=== PATIENT | female | born 1975 | race Caucasian/White ===

== ENCOUNTER 2018-03-26 13:02 | Outpatient (CLI) | payer MEDICAID ==
[~2018-03-26] VITALS: Ht 154.9 cm; Wt 108.5 kg
[2018-03-26 13:22] VITALS: BP 137/75
--- NOTE | 2018-03-26 13:46 | Diagnostic Imaging Report ---
INDICATION: Preoperative evaluation prior to septoplasty. TECHNIQUE: PA and lateral views of the chest are obtained. COMPARISON: No previous study is available for comparison at this time. FINDINGS: Heart size and pulmonary vasculature are within normal limits, and the lungs are clear, bilaterally. IMPRESSION: Unremarkable chest. Dictated by: Dictated on workstation # [id number]
[2018-03-26 14:12] LABS: BASOPHILS % (AUTO) 1 % (0-10); EOSINOPHILS # (AUTO) 0.1 10^3/uL (0.0-0.3); EOSINOPHILS % (AUTO) 2 % (0-10); HEMATOCRIT 42 % (35-52); LYMPHOCYTES # (AUTO) 2.8 X 10^3 (1.0-4.0); LYMPHOCYTES % (AUTO) 42 % (12-44); MEAN CORPUSCULAR HEMOGLOBIN 29 PG (25-34); MEAN CORPUSCULAR HGB CONC 34 G/DL (32-36); MEAN CORPUSCULAR VOLUME 86 FL (80-99); MEAN PLATELET VOLUME 9.8 FL (7.4-10.4); MONOCYTES # (AUTO) 0.4 X 10^3 (0.0-1.0); MONOCYTES % (AUTO) 5 % (0-12); NEUTROPHILS # (AUTO) 3.3 X 10^3 (1.8-7.8); NEUTROPHILS % (AUTO) 50 % (42-75); PLATELET COUNT 235 10^3/uL (130-400); RED BLOOD COUNT 4.84 10^6/uL (4.35-5.85); WHITE BLOOD COUNT 6.6 10^3/uL (4.3-11.0)
[2018-03-26 14:37] LABS: ALANINE AMINOTRANSFERASE 32 U/L (0-55); ALBUMIN 3.9 GM/DL (3.2-4.5); ALKALINE PHOSPHATASE 121 U/L (40-136); BILIRUBIN,TOTAL 0.3 MG/DL (0.1-1.0); BUN/CREATININE RATIO 14; CALCIUM 9.8 MG/DL (8.5-10.1); CARBON DIOXIDE 15 MMOL/L (21-32); CHLORIDE 99 MMOL/L (98-107); CREATININE SERUM 0.69 MG/DL (0.60-1.30); GFR ESTIMATED > 60; GLUCOSE 319 MG/DL (70-105); POTASSIUM 4.3 MMOL/L (3.6-5.0); SODIUM 135 MMOL/L (135-145); TOTAL PROTEIN 7.9 GM/DL (6.4-8.2)
[2018-03-28] MEDS ORDERED: NIAC500T24 PO (10:39)
[2018-03-28] MEDS ORDERED: FLUT9.9S NS (10:39)
[2018-03-28] MEDS ORDERED: TRAM50TA2 PO (10:39)
[2018-03-28] MEDS ORDERED: EZET1TAB29 PO (10:39)
[2018-03-28] MEDS ORDERED: AMIT50TA3 PO (10:39)
[2018-03-28] MEDS ORDERED: ESTR2TAB PO (10:39)
[2018-03-28] MEDS ORDERED: ACYC400T PO (10:39)
[2018-03-28] MEDS ORDERED: MILN50TA PO (10:39)
[2018-03-28] MEDS ORDERED: CELE-63 PO (10:39)
[2018-03-28] MEDS ORDERED: ACET-2650 PO (10:39)
[2018-03-28] MEDS ORDERED: EMPA25TA PO (10:39)
[2018-03-28] MEDS ORDERED: LEVO25TA5 PO (10:39)
[2018-03-28] MEDS ORDERED: PANT20TA3 PO (10:39)
[2018-03-28] MEDS ORDERED: INSU100V31 IJ ×2 (10:41)
[2018-03-28] MEDS ORDERED: INSU100V6 SQ (10:41)
== END 2018-03-26 15:30 | disposition home or self-care (01) ==
LOC: PREOP 13:02
PROVIDERS: ATTEND Otolaryngology Otolaryngology/Facial Plastic Surgery
DX: Z01.810 Encounter for preprocedural cardiovascular examination (principal); Z01.811 Encounter for preprocedural respiratory examination; Z01.812 Encounter for preprocedural laboratory examination; Z11.2 Encounter for screening for other bacterial diseases; J32.4 Chronic pansinusitis; J33.9 Nasal polyp, unspecified; J34.2 Deviated nasal septum; J34.3 Hypertrophy of nasal turbinates
CPT/HCPCS: 36415; 71046; 80053; 85025; 87081; 93005

== ENCOUNTER 2018-03-29 06:55 | Day surgery (SDC) | payer MEDICAID ==
[~2018-03-29] VITALS: Ht 154.9 cm; Wt 108.5 kg
[~2018-03-29 06:55] MED LIST: ACET-2650 PO; ACYC400T PO; AMIT50TA3 PO; CELE-63 PO; EMPA25TA PO; ESTR2TAB PO; EZET1TAB29 PO; FLUT9.9S NS; INSU100V31 IJ; INSU100V6 SQ; LEVO25TA5 PO; MILN50TA PO; NIAC500T24 PO; PANT20TA3 PO; TRAM50TA2 PO
[2018-03-29] MEDS ORDERED: AMPICILLIN/SULBACTAM INJECTION 1.5 GM in NS (IVPB) 100 ML IV ONE (07:15)
[2018-03-29] MEDS ORDERED: LACTATED RINGERS 1,000 ML IV PRN (07:15)
[2018-03-29 07:21] VITALS: BP 106/54
[2018-03-29] MEDS ORDERED: LIDOCAINE PF 1% 5 ML (XYLOCAINE) AMP ONE (08:00)
[2018-03-29] MEDS ORDERED: FAMOTIDINE 20MG/2ML IV (PEPCID) IV ONE (08:00)
[2018-03-29] MEDS ORDERED: ONDANSETRON 4 MG/2 ML (SDV) Z0FRAN IV ONE (08:00)
[2018-03-29] MEDS ORDERED: SCOPOLAMINE 1.5 MG (TRANSDERM-SCOP) PATCH TOP ONE (08:00)
[2018-03-29] MEDS ORDERED: COCAINE HCL 4% 2 ML SYR ONE (08:02)
[2018-03-29] MEDS ORDERED: PHENYLEPHRINE 0.5% NASAL SPR (NEO-SYNEPHRINE) REG ONE (08:02)
[2018-03-29] MEDS ORDERED: LIDOCAINE/EPI 1%-1:200,000 (XYLOCAINE) 10 ML VIAL ONE (08:02)
[2018-03-29] MEDS ORDERED: BSS 15 ML ONE (08:02)
[2018-03-29] MEDS: LACTATED RINGERS 1,000 ML IV PRN ×2 (08:14→10:30)
[2018-03-29] MEDS ORDERED: NS IV 500 ML 500 ML ONE (08:15)
[2018-03-29] MEDS ORDERED: MIDAZOLAM 2 MG/2 ML (VERSED) VIAL IV ONE (08:15)
[2018-03-29] MEDS ORDERED: LIDOCAINE PF 2% 5 ML (XYLOCAINE) VIAL ONE ×2 (08:15→08:35)
[2018-03-29] MEDS ORDERED: proPOfol 200 MG/20 ML (DIPRIVAN) VIAL IV ONE ×2 (08:15→08:35)
[2018-03-29] MEDS ORDERED: ONDANSETRON 4 MG/2 ML (SDV) Z0FRAN ONE ×2 (08:15→08:35)
[2018-03-29] MEDS ORDERED: ROCURONIUM 10 MG/ML 5 ML SYRINGE IV ONE ×3 (08:15→09:16)
[2018-03-29] MEDS ORDERED: fentaNYL INJECTION 100 MCG/2 ML AMP ONE ×2 (08:15→08:34)
[2018-03-29] MEDS ORDERED: MIDAZOLAM 2 MG/2 ML (VERSED) VIAL ONE ×2 (08:17→08:34)
--- NOTE | 2018-03-29 08:21 | Progress Note-Pre Operative ---
Pre-Operative Progress Note H&P Reviewed The H&P was reviewed, patient examined and no changes noted. Date Seen by Provider: Mar 29, 2018 Time Seen by Provider: 08:00 Date H&P Reviewed: Mar 29, 2018 Time H&P Reviewed: 08:00 Pre-Operative Diagnosis: Bilat Chronic Sinusitis, Deviated nasal septum, Bilat Hyepr of Inf Turbs ANDRÉS FRITZ MD Mar 29, 2018 8:21 am
[2018-03-29] MEDS ORDERED: SEVOFLURANE (ULTANE) 15 ML INHAL SOLN ONE ×3 (08:35→09:32)
[2018-03-29] MEDS ORDERED: LACTATED RINGERS 1,000 ML IV ONE (08:35)
[2018-03-29] MEDS ORDERED: NEOSTIGMINE 1 MG/ML 5 ML SYRINGE ONE (09:11)
[2018-03-29] MEDS ORDERED: GLYCOPYRROLATE 0.2 MG/ML (ROBINUL) 2 ML VIAL ONE (09:11)
[2018-03-29] MEDS ORDERED: D5 1/2 NS W/KCL 20 MEQ/L 1,000 ML IV SCH (09:47)
--- NOTE | 2018-03-29 09:47 | Progress Note-Post Operative ---
Post-Operative Progess Note Surgeon (s)/Bleacher Sulfite Pulp (s) Surgeon ANDRÉS FRITZ MD Bleacher Sulfite Pulp n/a Pre-Operative Diagnosis Bilat Chronic Sinusitis, Deviated nasal septum, Bilat Hyepr of Inf Turbs Post-Operative Diagnosis same Post-Op Procedure Note Date of Procedure: Mar 29, 2018 Name of Procedure Performed: Bilat ESS, Bilat Reduction of INf Turbinates Description & Findings Description and Findings: n/a Anesthesia Type get Estimated Blood Loss minimal Packing none. Specimen(s) collected/removed bilat chroinc sinus disease ANDRÉS FRITZ MD Mar 29, 2018 9:47 am
[2018-03-29] MEDS ORDERED: PROMETHAZINE INJ 25 MG/ML (PHENERGAN) AMP IVP PRN ×2 (10:00)
[2018-03-29] MEDS ORDERED: HYDROcodone/APAP 5 MG/325 MG (LORTAB) TAB PO PRN (10:00)
[2018-03-29] MEDS ORDERED: morphine INJ 10 MG/ML 1ML (SYR OR VIAL) ONE (10:00)
[2018-03-29] MEDS ORDERED: ONDANSETRON 4 MG/2 ML (SDV) Z0FRAN IVP PRN (10:00)
[2018-03-29] MEDS ORDERED: HYDROmorphone 2 MG/ML VIAL (DILAUDID) IV PRN (10:00)
[2018-03-29] MEDS ORDERED: ACETAMINOPHEN 325 MG TABLET PO PRN (10:00)
[2018-03-29] MEDS ORDERED: MEPERIDINE (DEMEROL) INJ 50 MG/ML IVP PRN (10:00)
[2018-03-29] MEDS: morphine INJ 10 MG/ML 1ML (SYR OR VIAL) IVP PRN ×2 (10:08→10:15)
[2018-03-29 10:50] VITALS: BP 120/60
[2018-03-29] MEDS ORDERED: HYDROcodone/APAP 5 MG/325 MG (LORTAB) TAB ONE (10:57)
[2018-03-29] MEDS ORDERED: HYDROcodone/APAP 5 MG/325 MG (LORTAB) TAB PO ONE (11:00)
[2018-03-29 11:20] VITALS: BP 114/84
[2018-03-29 11:50] VITALS: BP 101/51
[2018-03-29] MEDS ORDERED: PROMETHAZINE INJ 25 MG/ML (PHENERGAN) AMP IVP ONE (12:00)
--- NOTE | 2018-03-29 12:21 | Anesthesia-General Post-Op ---
General Patient Condition Mental Status/LOC: Same as Preop Cardiovascular: Satisfactory Nausea/Vomiting: Absent Respiratory: Satisfactory Pain: Controlled Complications: Absent Post Op Complications Complications None Follow Up Care/Instructions Patient Instructions None needed. Anesthesia/Patient Condition Patient Condition Patient is doing well, no complaints, stable vital signs, no apparent adverse anesthesia problems. No complications reported per nursing. D/C home per [facility] Criteria: Yes ASH MAGANA CRNA Mar 29, 2018 12:21
[2018-03-29] MEDS ORDERED: AMOX-355 PO (12:32)
[2018-03-29] MEDS ORDERED: ACHD5005 PO (12:32)
[2018-03-29 13:00] VITALS: BP 107/58
[2018-03-29 13:20] VITALS: BP 107/58
--- OUTSIDE RECORDS SUMMARY | 2018-03-30 10:49 | XMS REPORT | Clinical Summary ---
Author Author Admin, E Organization [facility] Address Unknown Phone Unavailable Allergies, Adverse Reactions, Alerts Allergy Name Reaction Description Start Date Severity Status Provider No Known Allergies Gail Berkowitz Conditions or Problems Problem Name Problem Code Onset Date Status Entry Date Provider Comment Standard Description Annotate Asthma 493.90 Active Alejandro Haynes MD Asthma, unspecified (History of) Diabetes, Type 2 250.00 Active Alejandro Haynes MD Diabetes mellitus without mention of complication, type II or unspecified type , not stated as uncontrolled FH Stroke V17.1 Active Alejandro Haynes MD Family history of stroke (cerebrovascular) FH Diabetes V18.0 Active Alejandro Haynes MD Family history of diabetes mellitus Chronic tonsillitis 474.00 Active Alejandro Haynes MD Chronic tonsillitis AFTERCARE FLW SURG TEETH ORL CAV&DIGESTV SYS NEC V58.75 Active Alejandro Haynes MD Aftercare following surgery of the teeth,oral cavity and digestive system, NEC Irregular menses 626.4 Active Desiree Rosado MD Irregular menstrual cycle Stress incontinence 788.32 Active Desiree Rosado MD Stress incontinence, male Hx of endometrial ablation V45.89 Active Desiree Rosado MD Other postsurgical status Family history of uterine cancer V16.49 Active Desiree Rosado MD Family history of malignant neoplasm of other genital organ Medication List Medication Instructions Start Date Stop Date Generic Name NDC Status Provider Patient Instruction SAVELLA 100 MG ORAL TABS 1 tablet twice daily MILNACIPRAN HCL 04315754572 Active Desiree Rosado MD Active AMITRIPTYLINE HCL 25 MG ORAL TABS 1.5 tablets once daily AMITRIPTYLINE HCL 66117223576 Active Desiree Rosado MD Active TIZANIDINE HCL 4 MG ORAL TABS 1/2 tablet 2 to 3x daily TIZANIDINE HCL 90272879289 Active Desiree Rosado MD Active PANTOPRAZOLE SODIUM 40 MG ORAL TBEC 1 tablet daily PANTOPRAZOLE SODIUM 04305079183 Active Desiree Rosado MD Active RANITIDINE HCL 150 MG ORAL TABS 1 tablet twice daily RANITIDINE HCL 30551871920 Active Desiree Rosado MD Active CELECOXIB 200 MG ORAL CAPS 1 tablet twice daily CELECOXIB 58408797916 Active Desiree Rosado MD Active LEVO-T 25 MCG ORAL TABS 1 tablet daily LEVOTHYROXINE SODIUM 39411623314 Active Desiree Rosado MD Active B-12 1000 MCG ORAL CAPS 1 capsule daily CYANOCOBALAMIN 01186896759 Active Desiree Rosado MD Active INVOKANA 300 MG ORAL TABS take 1 tablet by mouth daily before the first meal of the day CANAGLIFLOZIN 38293482611 Active Desiree Rosado MD Active FENOFIBRATE 150 MG ORAL CAPS 1 tablet daily FENOFIBRATE 03537325546 Active Desiree Rosado MD Active GLYBURIDE MICRONIZED 3 MG TABS Take one by mouth daily GLYBURIDE MICRONIZED 58479493765 No Longer Active Desiree Rosado MD Active ALPRAZOLAM TABS Take one by mouth at bedtime as needed ALPRAZOLAM TABS 93688970258 No Longer Active Desiree Rosado MD Active ALBUTEROL SULFATE 0.083 % NEBU SOLN one vial per nebulizer needed ALBUTEROL SULFATE 73953646584 Active Alejandro Haynes MD Active GABAPENTIN 300 MG CAPS 2 po q hs for nerve pain GABAPENTIN 35650791382 Active Alejandro Haynes MD Active ALPRAZOLAM TABS Take one by mouth at bedtime as needed ALPRAZOLAM TABS ALPRAZOLAM TABS Inactive GLYBURIDE MICRONIZED 3 MG TABS Take one by mouth daily GLYBURIDE MICRONIZED 3 MG TABS 955639 GLYBURIDE MICRONIZED Inactive Vital Signs Date Name Value Unit Range Description blood pressure, diastolic - 8462-4 80 mm[Hg] BP bowman blood pressure, systolic - 8480-6 133 mm[Hg] BP sys pulse rate E&M - 8867-4 104 /min Heart rate temperature E&M 98.0 [degF] Body temperature weight E&M - 3141-9 223 [lb_av] Weight Measured Diagnostic Results Date Name Value Unit Range Description Chart Maintenance: Outside labs entered on flowsheet - Chemistry sodium, serum 133 mmol/L potassium, serum 3.8 mmol/L blood glucose 275 mg/dL creatinine, serum 0.64 mg/dL aspartate aminotransferase (SGOT), serum 34 U/L alanine aminotransferase (SGPT), serum 53 U/L alkaline phosphatase, serum 129 U/L protein, total urine random 2+ mg/dL Chart Maintenance: Outside labs entered on flowsheet - Hematology leukocyte count, blood 10.7 10*3/mm3 hemoglobin, blood 15.9 g/dL platelet count 308 10*3/mm3 Lab Report: Chlamydia/GC [id number] - Lab chlamydia DNA probe NOT DETECTED NOT DETECTED Lab Report: Chlamydia/GC [id number] - Microbiology Neisseria gonorrhoeae DNA probe NOT DETECTED NOT DETECTED Encounters Code Encounter Date Provider Facility CPT-47863 Level 3 Est. 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
--- OUTSIDE RECORDS SUMMARY | 2018-03-30 10:49 | XMS REPORT | Clinical Summary ---
Author Author Admin, E Organization [facility] [employer] Address Unknown Phone Unavailable Allergies, Adverse Reactions, [...] and digestive system, NEC Irregular menses 626.4 Resolved Desiree Rosado MD Irregular menstrual cycle Stress incontinence 788.32 Active Desiree Rosado MD Stress incontinence, male Hx of endometrial ablation V45.89 Resolved Desiree Rosado MD Other postsurgical status Family history of uterine cancer V16.49 Active Desiree Rosado MD Family history of malignant neoplasm of other genital organ Post-op care V67.00 Active Desiree Rosado MD Follow-up examination following surgery, unspecified Irregular menses ICD-626.4 Inactive Desiree Rosado MD Hx of endometrial ablation ICD-V45.89 Inactive Desiree Rosado MD Medication List Medication Instructions Start Date Stop Date Generic Name NDC Status Provider Patient Instruction ESTRADIOL 1 MG ORAL TABS one tab PO daily ESTRADIOL 83670526088 Active Desiree Rosado MD Active LANTUS 100 UNIT/ML SC SOLN 15units at night INSULIN GLARGINE 37511653862 Active Desiree Rosado MD Active NOVOLOG 100 UNIT/ML SC SOLN sliding scale at meals INSULIN ASPART 95992683824 Active Desiree Rosado MD Active GABAPENTIN 300 MG CAPS 2 po q hs for nerve pain GABAPENTIN 84186998843 No Longer Active Desiree Rosado MD Active INVOKANA 300 MG ORAL TABS take 1 tablet by mouth daily before the first meal of the day CANAGLIFLOZIN 68563274539 No Longer Active Desiree Rosado MD Active SAVELLA 100 MG ORAL TABS 1 tablet twice daily MILNACIPRAN HCL 67833226315 Active Desiree Rosado MD Active AMITRIPTYLINE HCL 25 MG ORAL TABS 1.5 tablets once daily AMITRIPTYLINE HCL 70426150779 Active Desiree Rosado MD Active TIZANIDINE HCL 4 MG ORAL TABS 1/2 tablet 2 to 3x daily TIZANIDINE HCL 18242880007 Active Desiree Rosado MD Active PANTOPRAZOLE SODIUM 40 MG ORAL TBEC 1 tablet daily PANTOPRAZOLE SODIUM 76059694240 Active Desiree Rosado MD Active RANITIDINE HCL 150 MG ORAL TABS 1 tablet twice daily RANITIDINE HCL 32816604563 Active Desiree Rosado MD Active CELECOXIB 200 MG ORAL CAPS 1 tablet twice daily CELECOXIB 36060430227 Active Desiree Rosado MD Active LEVO-T 25 MCG ORAL TABS 1 tablet daily LEVOTHYROXINE SODIUM 69334031737 Active Desiree Rosado MD Active B-12 1000 MCG ORAL CAPS 1 capsule daily CYANOCOBALAMIN 96904138277 Active Desiree Rosado MD Active FENOFIBRATE 150 MG ORAL CAPS 1 tablet daily FENOFIBRATE 80131329383 Active Desiree Rosado MD Active GLYBURIDE MICRONIZED 3 MG TABS Take one by mouth daily GLYBURIDE MICRONIZED 79647792993 No Longer Active Desiree Rosado MD Active ALPRAZOLAM TABS Take one by mouth at bedtime as needed ALPRAZOLAM TABS 63731817438 No Longer Active Desiree Rosado MD Active ALBUTEROL SULFATE 0.083 % NEBU SOLN one vial per nebulizer needed ALBUTEROL SULFATE 44050688028 Active Alejandro Haynes MD Active ALPRAZOLAM TABS Take one by mouth at bedtime as needed ALPRAZOLAM TABS ALPRAZOLAM TABS Inactive GLYBURIDE MICRONIZED 3 MG TABS Take one by mouth daily GLYBURIDE MICRONIZED 3 MG TABS 176167 GLYBURIDE MICRONIZED Inactive INVOKANA 300 MG ORAL TABS take 1 tablet by mouth daily before the first meal of the day INVOKANA 300 MG ORAL TABS CANAGLIFLOZIN Inactive GABAPENTIN 300 MG CAPS 2 po q hs for nerve pain GABAPENTIN 300 MG CAPS 342615 GABAPENTIN Inactive Vital Signs Date Name Value Unit Range Description blood pressure, diastolic - 8462-4 70 mm[Hg] BP bowman blood pressure, systolic - 8480-6 134 mm[Hg] BP sys pulse rate E&M - 8867-4 95 /min Heart rate temperature E&M 98.0 [degF] Body temperature weight E&M - 3141-9 218 [lb_av] Weight Measured blood pressure, diastolic - 8462-4 80 mm[Hg] [...] platelet count 308 10*3/mm3 Lab Report: Chlamydia/GC APTIMA/[id number] - Lab chlamydia DNA probe NOT DETECTED NOT DETECTED Lab Report: Chlamydia/GC APTIMA/[id number] - Microbiology Neisseria gonorrhoeae DNA probe NOT DETECTED NOT DETECTED Encounters Code Encounter Date Provider Facility CPT-11218 Level 3 Est. 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
--- OUTSIDE RECORDS SUMMARY | 2018-03-30 10:49 | XMS REPORT ---
Author Author [facility] [place] [facility] Medical Staff Organization [facility] [employer] [facility] Address [address] [place] [id number] Phone [phone] Care Team Providers Care Highway Landscape Architect Name Role Phone GUILLERMO CESPEDES PP [phone] GUILLERMO CESPEDES PP [phone] Summary purpose TRANSITION OF CARE AUTO GENERATION Chief Complaint and Reason for Visit Admit Diagnosis 1 RAL HYSTERECTOMY W BSO Problem list No authorized problems tracked for continuity of care are available for this visit. Encounters No authorized problems tracked for encounter diagnoses are available for this visit. Medications No medications recorded for this patient visit Allergies, adverse reactions, alerts Allergen Category Ingredient Status Reaction Severity Onset Anectine Drug Allergy Anectine Confirmed or Verified Family hx of severe rx to Anecti Unknown Anectine Drug Allergy succinylcholine Confirmed or Verified Family hx of severe rx to Anecti Unknown Immunizations No immunizations recorded for this patient visit Relevant diagnostic tests and/or laboratory data RESULTS [id number]:47:00 Progress Note PROGRESS NOTE 12/11/2015 09:47:42 S: Patient states pain well controlled. Tolerating by mouth. No nausea or vomiting. Ambulating and voiding without difficulty. After confronting the patient regarding her diabetes care she admits that while she takes her occasionally she has not followed up with Inés Richter as she previously led on. Reports her last hemoglobin A1c was actually 6 months ago. I had been under the impression she was taking care with Dr. Brown. She also admits that she has not been taking her blood sugars regularly and cannot tell us what they had been running. O: VITAL SIGNS: Stable. Patient is afebrile. GENERAL: Alert and oriented x3. No acute distress, sitting comfortably on the edge of the bed. Hemoglobin is stable. Other labs are unremarkable other than her blood sugars which remained considerably elevated 2 to 300. A/P:1. Status post robotic assisted laparoscopic hysterectomy with bilateral salpingo-oophorectomy postoperative day 1. Postoperatively, she is doing well and could consider dismissal upon approval by our consult. 2. Uncontrolled type 2 diabetes. Discussed with the patient the importance of controlling her blood sugars especially during the immediate postoperative period for healing purposes. Discussed risk of infection and vaginal cuff dehiscence. Also discussed with her diabetes long-term consequences including renal and cardiac damage. Recommend she have tighter control and either have better follow up with Inés Richter or ask Dr. Zapien if he would consider accepting her as a patient. 3. We will have the dietitian speak with her regarding her diabetic diet. 4. Offered her an appointment with Carlos Salter our diabetic specialist at [facility]. 5. Tobaccoism. Discussed with her the intraoperative complications including difficulty in placing her in the lithotomy position due to intolerance from her respiratory standpoint. Discussed especially given her diabetes it is especially important to control her other health components and recommend tobacco cessation immediately. 6. Continue routine postoperative care. Lebron Hilliard MD /nv 12/11/2015 09:47:42/12/11/2015 10:02:39 Clinic Code: cc: [facility] [address] [place] [address]<END HEADER> Routine Urinalysis [id number]:35:00 Result Normal Range Units Color YELLOW Clarity Slighty cloudy Specific [place] 1.025 1.003-1.035 pH 6.5 4.5-8.0 Glucose 3+ Bilirubin NEGATIVE Ketones NEGATIVE Protein 2+ Urobilinogen 0.2 0-0.2 E.U./dL Nitrites NEGATIVE Blood NEGATIVE Leukocytes NEGATIVE WBCs No WBC's Seen RBCs 0-5 Squamous Epithelial 3+ Bacteria Occasional Yeast 3+ Chemistry [id number]:15:00 Result Normal Range Units Sodium 137 134-145 mEq/l Potassium 4.3 3.5-5.1 mEq/l Chloride 100 98-107 mEq/l CO2 H 28.2 22-28 mEq/l Glucose H 289 70-105 mg/dl BUN 13 7-18 mg/dl Creatinine 0.64 0.6-1.0 mg/dl Calcium 8.6 8.4-10.2 mg/dl TP - Total Protein 6.2 6.0-8.3 g/dl Albumin L 3.2 3.5-5 g/dl Bilirubin - Total 0.2 0.1-1.0 mg/dl AST 22 10-42 IU/L ALT 47 12-65 IU/L ALP H 108 25-72 IU/L Osmolality 284.5 280-300 mOsm/L Albumin/Globulin Ratio 1.1 0-8 Anion GAP 8.8 8-16 BUN/Creatinine Ratio H 20.3 10-20 Estimated GFR 104 >=60 mL/min/1.7 :35:00 Result Normal Range Units Sodium L 133 134-145 mEq/l Potassium 3.8 3.5-5.1 mEq/l Chloride L 95 98-107 mEq/l CO2 27.4 22-28 mEq/l Glucose H 275 70-105 mg/dl BUN 10 7-18 mg/dl Creatinine 0.64 0.6-1.0 mg/dl Calcium 8.9 8.4-10.2 mg/dl TP - Total Protein 7.7 6.0-8.3 g/dl Albumin 4.3 3.5-5 g/dl Bilirubin - Total 0.3 0.1-1.0 mg/dl AST 34 10-42 IU/L ALT 53 12-65 IU/L ALP H 129 25-72 IU/L Osmolality L 275.2 280-300 mOsm/L Albumin/Globulin Ratio 1.3 0-8 Anion GAP 10.6 8-16 BUN/Creatinine Ratio 15.6 10-20 Estimated GFR 104 >=60 mL/min/1.7 Hematology :15:00 Result Normal Range Units WBC H 12.1 4.8-10.8 103/uL RBC 4.4 4.2-5.4 106/uL HGB 12.9 12.0-16.0 g/dl HCT 40.2 36.9-47.0 % MCV 91.8 81-99 FL MCH 29.5 27-31 pg MCHC L 32.1 33-37 g/dl RDW 12.8 11.5-15.5 % PLT 273 130-400 103/uL MPV 9.7 7.3-10.4 FL :35:00 Result Normal Range Units WBC 10.7 4.8-10.8 103/uL RBC 5.3 4.2-5.4 106/uL HGB 15.9 12.0-16.0 g/dl HCT H 47.9 36.9-47.0 % MCV 90.2 81-99 FL MCH 29.9 27-31 pg MCHC 33.2 33-37 g/dl RDW 13.3 11.5-15.5 % PLT 308 130-400 103/uL MPV 9.6 7.3-10.4 FL Special Chemistry [id number]:05:00 Result Normal Range Units Hemoglobin A1C H 11.1 4.5-6.2 % Urine Chemistry [id number]:05:00 Result Normal Range Units Microalbumin 758.9 mg/l Reference Range Not Established Body Fluid 07-15-203022:35:00 Result Normal Range Units pH 6.5 4.5-8.0 Thyroid Testing :05:00 Result Normal Range Units TSH 1.88 0.36-3.74 uIU/mL Radiology Results :25:00 Chest XRay - Port - 1 View PACs Image DATE OF EXAM: Dec 10 2015 RAD 0292-CHEST 1 VIEW PORT : RADIOLOGY REPORT DATE OF SERVICE: 12/10/15 HISTORY: Patient is postop. PORTABLE ONE VIEW CHEST 1150 HOURS Heart and mediastinum are normal. Lungs are clear. No effusion is seen. IMPRESSION: Negative study of the chest. DO NEFTALY Oscar/nv 12/10/2015 12:19: / 12/10/2015 12:52:32 cc:Dr. Lebron Hilliard This document has been electronically Signed by: On: DATE OF EXAM: Dec 10 2015 RAD 0292-CHEST 1 VIEW PORT : RADIOLOGY REPORT DATE OF SERVICE: 12/10/15 HISTORY: Patient is postop. PORTABLE ONE VIEW CHEST 1150 HOURS Heart and mediastinum are normal. Lungs are clear. No effusion is seen. IMPRESSION: Negative study of the chest. DO NEFTALY Oscar/zee 12/10/2015 12:19: / 12/10/2015 12:52:32 cc:Dr. Lebron Hilliard This document has been electronically Signed by: HALINA JASSO DO On: 20152:24P RAL HYSTERECTOMY W BSO Result Amended on 2015-12-14 at 14:31:33. Previous status was [place]. RAL HYSTERECTOMY W BSO [id number]:15:00 Result Normal Range Units MPV 9.7 7.3-10.4 FL [id number]:35:00 Result Normal Range Units MPV 9.6 7.3-10.4 FL History of procedures Procedure Code Code Type Description Date Performed Performing Physician [id number] ICD10 Resection of Uterus, Percutaneous Endoscopic Approach LEBRON HILLIARD [id number] ICD10 Resection of Cervix, Percutaneous Endoscopic Approach LEBRON HILLIARD [id number] ICD10 Resection of Bilateral Ovaries, Perc Endo Approach 2015 LEBRON HILLIARD [id number] ICD10 Resection of Bilateral Fallopian Tubes, Perc Endo Approach 12-10-2015 LEBRON HILLIARD [id number] ICD10 Robotic Assisted Procedure of Trunk, Perc Endo Approach LEBRON HILLIARD 07733 CPT-4 ROUTINE VENIPUNCTURE 12-10-2015 JAVIER MONTALVO 11350 CPT-4 ROUTINE VENIPUNCTURE 12-11-2015 LEBRON HILLIARD 77132 CPT-4 TLH W/T/O 250 G OR LESS 12-10-2015 LEBRON HILLIARD 29366 CPT-4 CHEST X-RAY 12-10-2015 LEBRON HILLIARD 70940 CPT-4 COMPREHEN METABOLIC PANEL 12-11-2015 LEBRON HILLIARD 11193 CPT-4 URINE TEST 12-10-2015 LEBRON HILLIARD 99229 CPT-4 MICROALBUMIN, QUANTITATIVE 12-10-2015 LEBRON HILLIARD 03590 CPT-4 GLYCOSYLATED HEMOGLOBIN TEST 12-10-2015 LEBRON HILLIARD 83362 CPT-4 ASSAY THYROID STIM HORMONE 12-10-2015 LEBRON HILLIARD 80070 CPT-4 COMPLETE CBC, AUTOMATED 12-11-2015 LEBRON HILLIARD 38538 CPT-4 VITAL CAPACITY TEST 12-10-2015 LEBRON HILLIARD 16235 CPT-4 SPECIAL SUPPLIES 12-10-2015 LEBRON HILLIARD 57563 CPT-4 SPECIAL SUPPLIES 12-10-2015 LEBRON HILLIARD 83063 CPT-4 SPECIAL SUPPLIES 12-10-2015 LEBRON HILLIARD 21937 CPT-4 SPECIAL SUPPLIES 12-10-2015 LEBRON HILLIARD 54515 CPT-4 SPECIAL SUPPLIES 12-10-2015 LEBRON HILLIARD 49621 CPT-4 SPECIAL SUPPLIES 12-10-2015 LEBRON HILLIARD 39673 CPT-4 SPECIAL SUPPLIES 12-10-2015 LEBRON HILLIARD 53050 CPT-4 SPECIAL SUPPLIES 12-10-2015 LEBRON HILLIARD 00900 CPT-4 SPECIAL SUPPLIES 12-10-2015 LEBRON HILLIARD 40816 CPT-4 SPECIAL SUPPLIES 12-10-2015 LEBRON HILLIARD 54333 CPT-4 SPECIAL SUPPLIES 12-10-2015 LEBRON HILLIARD 80000 CPT-4 SPECIAL SUPPLIES 12-10-2015 LEBRON HILLIARD 75972 CPT-4 SPECIAL SUPPLIES 12-10-2015 LEBRON HILLIARD 78627 CPT-4 SPECIAL SUPPLIES 12-10-2015 LEBRON HILLIARD 46850 CPT-4 SPECIAL SUPPLIES 12-11-2015 LEBRON HILLIARD 69354 CPT-4 SPECIAL SUPPLIES 12-11-2015 LEBRON HILLIARD C9290 CPT-4 INJ, BUPIVICAINE LIPOSOME 12-10-2015 LEBRON HILLIARD J0131 CPT-4 ACETAMINOPHEN INJECTION 12-10-2015 LEBRON HILLIARD J0690 CPT-4 CEFAZOLIN SODIUM INJECTION 12-10-2015 LEBRON HILLIARD J1100 CPT-4 DEXAMETHASONE SODIUM PHOS 12-10-2015 LEBRON HILLIARD J1815 CPT-4 INSULIN INJECTION 12-10-2015 LEBRON HILLIARD J1885 CPT-4 TORADOL SYR 30MG/ML 12-10-2015 LEBRON HILLIARD J1885 CPT-4 TORADOL SYR 30MG/ML 12-10-2015 LEBRON HILLIARD J1885 CPT-4 TORADOL SYR 30MG/ML 12-11-2015 LEBRON HILLIARD J2250 CPT-4 INJ MIDAZOLAM HYDROCHLORIDE 12-10-2015 LEBRON HILLIARD J2250 CPT-4 INJ MIDAZOLAM HYDROCHLORIDE 12-10-2015 LEBRON HILLIARD J2250 CPT-4 INJ MIDAZOLAM HYDROCHLORIDE 12-10-2015 LEBRON HILLIARD J2270 CPT-4 MORPHINE SULFATE INJECTION 12-10-2015 LEBRON HILILARD J2405 CPT-4 ONDANSETRON HCL INJECTION 12-10-2015 LEBRON HILLIARD J2704 CPT-4 INJ, PROPOFOL, 10 MG 12-10-2015 LEBRON HILLIARD J2704 CPT-4 INJ, PROPOFOL, 10 MG 12-10-2015 LEBRON HILLIARD J2704 CPT-4 INJ, PROPOFOL, 10 MG 12-10-2015 LEBRON HILLIARD J2704 CPT-4 INJ, PROPOFOL, 10 MG 12-10-2015 LEBRON HILLIARD J2704 CPT-4 INJ, PROPOFOL, 10 MG 12-10-2015 LEBRON HILLIARD J2710 CPT-4 NEOSTIGMINE METHYLSLFTE INJ 12-10-2015 LEBRON HILLIARD J3010 CPT-4 FENTANYL CITRATE INJECITON 12-10-2015 LEBRON HILLIARD J3010 CPT-4 FENTANYL CITRATE INJECITON 12-10-2015 LEBRON HILLIARD J7030 CPT-4 NORMAL SALINE SOLUTION INFUS 12-10-2015 VIELKA HOUSER J7030 CPT-4 NORMAL SALINE SOLUTION INFUS 12-10-2015 LEBRON HILLIARD J7120 CPT-4 RINGERS LACTATE INFUSION 12-10-2015 LEBRON HILLIARD J7120 CPT-4 RINGERS LACTATE INFUSION 12-10-2015 LEBRON HILLIARD J7120 CPT-4 RINGERS LACTATE INFUSION 12-10-2015 LEBRON HILLIARD Functional status Functional Status Finding Observation Time Hearing Prob Loc none [id number]:56 Vision Problems yes :56 Vision Correct Dev glasses 63-71-251759:56 Ambulation Asst Dev none 10-86-832461:56 Range of Motion full :00 Muscle Strength RUE 5 ROM full resist 32-51-901922:00 Muscle Strength RLE 5 ROM full resist :00 Muscle Strength LUE 5 ROM full resist 38-47-887918:00 Muscle Strength LLE 5 ROM full resist 40-91-923446:00 Transfers assist x 1 :00 Ambulation in room :00 Balance steady :00 Bathing Assistance none :56 Eating Assistance none :56 Dressing Assistance none 11-83-992974:56 Toileting Assistance none :56 Transfer Assistance none :56 Decline Slf Care/Mob no :56 Phys Cond Stable yes :56 Nutrition normal :00 Diet ADA specify calorie Comment: 1800 ADA :00 Oral Cavity moist and intact :00 Teeth dentures :00 Dental Hygiene good :00 Abdomen Appearance round Comment: lap sites to abdomen :00 Abdomen soft :00 Bowel Sounds present :00 NG Tube no :00 Feeding Tube none :00 Bass no 76-63-401196:00 Bass Cath Type regular 20-32-113681:05 Bass Patent no 46-26-382825:00 Cont Bladder Irr no :00 Ostomy no :00 Stool other (specify) Comment: None noted at this time :30 Color normal :09 Consistency loose :09 Urination normal :00 Urine Clarity clear :00 Urine Color pale yellow :00 Quality sym/unlabored :00 Cough absent :00 Secretions no :00 Breath Sounds RUL clear :00 Breath Sounds RML clear :00 Breath Sounds RLL clear :00 Breath Sounds CARLOS clear :00 Breath Sounds LLL clear :00 Airway natural :00 Chest Tube no :00 Oxygen no 35-16-149607:35 Oxygen Mask Type nasal cannula 91-73-211629:00 Oxygen Flow Rate 1 46-21-860654:00 C-PAP no 59-89-841370:00 BI-PAP no :00 Temp >100.4 no :00 Temp <96.8 no :00 Chills with rigors no :00 HR > 90bpm no :00 Respirations > 20 no :00 Systolic <90 no :00 headache stiff neck no :00 WBC > 96299 yes Comment: 12.1 :00 WBC < 4000 no [id number]:00 IV Site Location L wrist/L Hand [id number]:40 IV Type peripheral :40 IV Site Information discontinued :40 IV Site Start Attmpt 2 times Comment: 2 This result is a modification to a previously-entered result. It was modified on 12/10/15 at 07:44 by YONNY. :38 IV Site Rafa 18 :30 IV Site Appearance WNL :30 IV Site Color clear : IV Site Patent yes :30 Dressing Type occlusive :30 Nursing Note pt. states feeling pretty good. still hurting though. 20150819:19 Cognitive Status Finding Observation Time Learning Ability comprehends well :40 Neurological no :40 Psychological no :40 Physical no :40 Hearing no :40 Rim Roller Setter Needed no :40 Sign Language no :40 Emotional no :40 Vision yes :40 Laguage no :40 Financial no :40 Vital signs Type Value Date Respiration Rate 20breaths per minute :35 Pulse 87beats per minute :35 Oxygen Saturation 94% :35 BP Systolic 156mmHg :35 BP Diastolic 62mmHg 80-73-678960:35 Temperature 98.4F 95-22-517277:35 Height 62inches :49 Weight 222LB 16-32-355819:49 Social history Type Value Smoking Status CURRENT EVERY DAY SMOKER Treatment Plan No treatment plan text is available for this visit. Hospital discharge instructions Discharge Date/Time 12/11/15 1245 Accompanied By mother et son Relationship parent Dismissal Condition good Disposition on DC home Valuables yes Valuable Type cell phone Valuables Returned T patient DC Inst/Educ Give yes Exit Care Educ Given yes Med/Side Effects Rev yes DC Med Rec Rev yes Immun Indicated no PNE Vac Never Vaccines Ord Given no Flu Vac 2014 Tetanus Vac Unknown Diet Explained yes Follow up appt already scheduled Follow Up Appt D/T 12/16/15 @7403
--- OUTSIDE RECORDS SUMMARY | 2018-03-30 10:49 | XMS REPORT | Clinical Summary ---
Author Author Admin, E Organization [facility] [employer] Address Unknown Phone Unavailable Allergies, Adverse Reactions, [...] Generic Name NDC Status Provider Patient Instruction LANTUS 100 UNIT/ML SC SOLN 15units at night INSULIN GLARGINE 07762046730 Active Desiree Rosado MD Active NOVOLOG 100 UNIT/ML SC SOLN sliding scale at meals INSULIN ASPART 09623473917 Active Desiree Rosado MD Active GABAPENTIN 300 MG CAPS 2 po q hs for nerve pain GABAPENTIN 00314023658 No Longer Active Desiree Rosado MD Active INVOKANA 300 MG ORAL TABS take 1 tablet by mouth daily before the first meal of the day CANAGLIFLOZIN 09028378021 No Longer Active Desiree Rosado MD Active SAVELLA 100 MG ORAL TABS 1 tablet twice daily MILNACIPRAN HCL 73404500697 Active Desiree Rosado MD Active AMITRIPTYLINE HCL 25 MG ORAL TABS 1.5 tablets once daily AMITRIPTYLINE HCL 07089222064 Active Desiree Rosado MD Active TIZANIDINE HCL 4 MG ORAL TABS 1/2 tablet 2 to 3x daily TIZANIDINE HCL 42941962324 Active Desiree Rosado MD Active PANTOPRAZOLE SODIUM 40 MG ORAL TBEC 1 tablet daily PANTOPRAZOLE SODIUM 80604658276 Active Desiree Rosado MD Active RANITIDINE HCL 150 MG ORAL TABS 1 tablet twice daily RANITIDINE HCL 45992788527 Active Desiree Rosado MD Active CELECOXIB 200 MG ORAL CAPS 1 tablet twice daily CELECOXIB 64559352339 Active Desiree Rosado MD Active LEVO-T 25 MCG ORAL TABS 1 tablet daily LEVOTHYROXINE SODIUM 30255592905 Active Desiree Rosado MD Active B-12 1000 MCG ORAL CAPS 1 capsule daily CYANOCOBALAMIN 49588541417 Active Desiree Rosado MD Active FENOFIBRATE 150 MG ORAL CAPS 1 tablet daily FENOFIBRATE 49846488304 Active Desiree Rosado MD Active GLYBURIDE MICRONIZED 3 MG TABS Take one by mouth daily GLYBURIDE MICRONIZED 35969114064 No Longer Active Desiree Rosado MD Active ALPRAZOLAM TABS Take one by mouth at bedtime as needed ALPRAZOLAM TABS 84432867100 No Longer Active Desiree Rosado MD Active ALBUTEROL SULFATE 0.083 % NEBU SOLN one vial per nebulizer needed ALBUTEROL SULFATE 47402085292 Active Alejandro Haynes MD Active ALPRAZOLAM TABS Take one by mouth at bedtime as needed ALPRAZOLAM TABS ALPRAZOLAM TABS Inactive GLYBURIDE MICRONIZED 3 MG TABS Take one by mouth daily GLYBURIDE MICRONIZED 3 MG TABS 527088 GLYBURIDE MICRONIZED Inactive INVOKANA 300 MG ORAL TABS take 1 tablet by mouth daily before the first meal of the day INVOKANA 300 MG ORAL TABS CANAGLIFLOZIN Inactive GABAPENTIN 300 MG CAPS 2 po q hs for nerve pain GABAPENTIN 300 MG CAPS 866769 GABAPENTIN Inactive Vital Signs Date Name Value [...] platelet count 308 10*3/mm3 Lab Report: Chlamydia/GC APTIMA/[id number] - Lab chlamydia DNA probe NOT DETECTED NOT DETECTED Lab Report: Chlamydia/GC APTIMA/[id number] - Microbiology Neisseria gonorrhoeae DNA probe NOT DETECTED NOT DETECTED Encounters Code Encounter Date Provider Facility CPT-82667 Level 3 Est. 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
--- OUTSIDE RECORDS SUMMARY | 2018-03-30 10:50 | XMS REPORT | Clinical Summary ---
Author Author Admin, E Organization [facility] [employer] Address Unknown Phone Unavailable Allergies, Adverse Reactions, Alerts Allergy Name Reaction Description Start Date Severity Status Provider No Known Allergies DELMIS Boles Conditions or Problems Problem Name Problem Code [...] TABS 1 tablet twice daily MILNACIPRAN HCL 83039214534 Active Desiree Rosado MD Active AMITRIPTYLINE HCL 25 MG ORAL TABS 1.5 tablets once daily AMITRIPTYLINE HCL 07733879112 Active Desiree Rosado MD Active TIZANIDINE HCL 4 MG ORAL TABS 1/2 tablet 2 to 3x daily TIZANIDINE HCL 11055227290 Active Desiree Rosado MD Active PANTOPRAZOLE SODIUM 40 MG ORAL TBEC 1 tablet daily PANTOPRAZOLE SODIUM 68525815486 Active Desiree Rosado MD Active RANITIDINE HCL 150 MG ORAL TABS 1 tablet twice daily RANITIDINE HCL 40855566001 Active Desiree Rosado MD Active CELECOXIB 200 MG ORAL CAPS 1 tablet twice daily CELECOXIB 60428581660 Active Desiree Rosado MD Active LEVO-T 25 MCG ORAL TABS 1 tablet daily LEVOTHYROXINE SODIUM 80717397464 Active Desiree Rosado MD Active B-12 1000 MCG ORAL CAPS 1 capsule daily CYANOCOBALAMIN 23402125965 Active Desiree Rosado MD Active INVOKANA 300 MG ORAL TABS take 1 tablet by mouth daily before the first meal of the day CANAGLIFLOZIN 20919922334 Active Desiree Rosado MD Active FENOFIBRATE 150 MG ORAL CAPS 1 tablet daily FENOFIBRATE 05468407116 Active Desiree Rosado MD Active GLYBURIDE MICRONIZED 3 MG TABS Take one by mouth daily GLYBURIDE MICRONIZED 55415822858 No Longer Active Desiree Rosado MD Active ALPRAZOLAM TABS Take one by mouth at bedtime as needed ALPRAZOLAM TABS 80347097342 No Longer Active Desiree Rosado MD Active ALBUTEROL SULFATE 0.083 % NEBU SOLN one vial per nebulizer needed ALBUTEROL SULFATE 81928647363 Active Alejandro Haynes MD Active GABAPENTIN 300 MG CAPS 2 po q hs for nerve pain GABAPENTIN 77809748569 Active Alejandro Haynes MD Active ALPRAZOLAM TABS Take one by mouth at bedtime as needed ALPRAZOLAM TABS ALPRAZOLAM TABS Inactive GLYBURIDE MICRONIZED 3 MG TABS Take one by mouth daily GLYBURIDE MICRONIZED 3 MG TABS 792280 GLYBURIDE MICRONIZED Inactive Encounters Code Encounter Date Provider Facility CPT-05360 Level 3 Est. 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
--- OUTSIDE RECORDS SUMMARY | 2018-03-30 10:50 | XMS REPORT | Clinical Summary ---
Author Author Admin, E Organization [facility] [employer] Address Unknown Phone Unavailable Allergies, Adverse Reactions, [...] TABS 1 tablet twice daily MILNACIPRAN HCL 01028561972 Active Desiree Rosado MD Active AMITRIPTYLINE HCL 25 MG ORAL TABS 1.5 tablets once daily AMITRIPTYLINE HCL 21989059050 Active Desiree Rosado MD Active TIZANIDINE HCL 4 MG ORAL TABS 1/2 tablet 2 to 3x daily TIZANIDINE HCL 24661267538 Active Desiree Rosado MD Active PANTOPRAZOLE SODIUM 40 MG ORAL TBEC 1 tablet daily PANTOPRAZOLE SODIUM 94904509994 Active Desiree Rosado MD Active RANITIDINE HCL 150 MG ORAL TABS 1 tablet twice daily RANITIDINE HCL 18021822647 Active Desiree Rosado MD Active CELECOXIB 200 MG ORAL CAPS 1 tablet twice daily CELECOXIB 63563188245 Active Desiree Rosado MD Active LEVO-T 25 MCG ORAL TABS 1 tablet daily LEVOTHYROXINE SODIUM 61795298005 Active Desiree Rosado MD Active B-12 1000 MCG ORAL CAPS 1 capsule daily CYANOCOBALAMIN 16941400940 Active Desiree Rosado MD Active INVOKANA 300 MG ORAL TABS take 1 tablet by mouth daily before the first meal of the day CANAGLIFLOZIN 41212737153 Active Desiree Rosado MD Active FENOFIBRATE 150 MG ORAL CAPS 1 tablet daily FENOFIBRATE 25160005070 Active Desiree Rosado MD Active GLYBURIDE MICRONIZED 3 MG TABS Take one by mouth daily GLYBURIDE MICRONIZED 23072312655 No Longer Active Dseiree Rosado MD Active ALPRAZOLAM TABS Take one by mouth at bedtime as needed ALPRAZOLAM TABS 68389812273 No Longer Active Desiree Rosado MD Active ALBUTEROL SULFATE 0.083 % NEBU SOLN one vial per nebulizer needed ALBUTEROL SULFATE 83422557741 Active Alejandro Haynes MD Active GABAPENTIN 300 MG CAPS 2 po q hs for nerve pain GABAPENTIN 77782107945 Active Alejandro Haynes MD Active ALPRAZOLAM TABS Take one by mouth at bedtime as needed ALPRAZOLAM TABS ALPRAZOLAM TABS Inactive GLYBURIDE MICRONIZED 3 MG TABS Take one by mouth daily GLYBURIDE MICRONIZED 3 MG TABS 840903 GLYBURIDE MICRONIZED Inactive Vital Signs Date Name [...] platelet count 308 10*3/mm3 Lab Report: Chlamydia/GC APTIMA/20307 - Lab chlamydia DNA probe NOT DETECTED NOT DETECTED Lab Report: Chlamydia/GC APTIMA/90760 - Microbiology Neisseria gonorrhoeae DNA probe NOT DETECTED NOT DETECTED Encounters Code Encounter Date Provider Facility CPT-38774 Level 3 Est. 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
--- OUTSIDE RECORDS SUMMARY | 2018-03-30 10:50 | XMS REPORT | Clinical Summary ---
Author Author Admin, E Organization [facility] [place] Address Unknown Phone Unavailable Allergies, Adverse Reactions, [...] TABS 1 tablet twice daily MILNACIPRAN HCL 68312703851 Active Desiree Rosado MD Active AMITRIPTYLINE HCL 25 MG ORAL TABS 1.5 tablets once daily AMITRIPTYLINE HCL 85728341447 Active Desiree Rosado MD Active TIZANIDINE HCL 4 MG ORAL TABS 1/2 tablet 2 to 3x daily TIZANIDINE HCL 43942334662 Active Desiree Rosado MD Active PANTOPRAZOLE SODIUM 40 MG ORAL TBEC 1 tablet daily PANTOPRAZOLE SODIUM 77572751361 Active Desiree Rosado MD Active RANITIDINE HCL 150 MG ORAL TABS 1 tablet twice daily RANITIDINE HCL 63416627768 Active Desiree Rosado MD Active CELECOXIB 200 MG ORAL CAPS 1 tablet twice daily CELECOXIB 00673230072 Active Desiree Rosado MD Active LEVO-T 25 MCG ORAL TABS 1 tablet daily LEVOTHYROXINE SODIUM 17750898107 Active Desiree Rosado MD Active B-12 1000 MCG ORAL CAPS 1 capsule daily CYANOCOBALAMIN 98170866240 Active Desiree Rosado MD Active INVOKANA 300 MG ORAL TABS take 1 tablet by mouth daily before the first meal of the day CANAGLIFLOZIN 01184205014 Active Desiree Rosado MD Active FENOFIBRATE 150 MG ORAL CAPS 1 tablet daily FENOFIBRATE 13479635308 Active Desiree Rosado MD Active GLYBURIDE MICRONIZED 3 MG TABS Take one by mouth daily GLYBURIDE MICRONIZED 37790013045 No Longer Active Desiree Rosado MD Active ALPRAZOLAM TABS Take one by mouth at bedtime as needed ALPRAZOLAM TABS 00411505252 No Longer Active Desiree Rosado MD Active ALBUTEROL SULFATE 0.083 % NEBHali SOLEkta one vial per nebulizer needed ALBUTEROL SULFATE 83937837815 Active Alejandro Haynse MD Active GABAPENTIN 300 MG CAPS 2 po q hs for nerve pain GABAPENTIN 24237246148 Active Alejandro Haynes MD Active ALPRAZOLAM TABS Take one by mouth at bedtime as needed ALPRAZOLAM TABS ALPRAZOLAM TABS Inactive GLYBURIDE MICRONIZED 3 MG TABS Take one by mouth daily GLYBURIDE MICRONIZED 3 MG TABS 296527 GLYBURIDE MICRONIZED Inactive Encounters Code Encounter Date Provider Facility CPT-87461 Level 3 Est. 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
--- OUTSIDE RECORDS SUMMARY | 2018-03-30 10:50 | XMS REPORT | Clinical Summary ---
Author Author Admin, E Organization [facility] [employer] Address Unknown Phone Unavailable Allergies, Adverse Reactions, [...] SC SOLN 15units at night INSULIN GLARGINE 82177277653 Active Desiree Rosado MD Active NOVOLOG 100 UNIT/ML SC SOLN sliding scale at meals INSULIN ASPART 43978040682 Active Desiree Rosado MD Active GABAPENTIN 300 MG CAPS 2 po q hs for nerve pain GABAPENTIN 06969812028 No Longer Active Desiree Rosado MD Active INVOKANA 300 MG ORAL TABS take 1 tablet by mouth daily before the first meal of the day CANAGLIFLOZIN 62908463013 No Longer Active Desiree Rosado MD Active SAVELLA 100 MG ORAL TABS 1 tablet twice daily MILNACIPRAN HCL 52727993000 Active Desiree Rosado MD Active AMITRIPTYLINE HCL 25 MG ORAL TABS 1.5 tablets once daily AMITRIPTYLINE HCL 09579943294 Active Desiree Rosado MD Active TIZANIDINE HCL 4 MG ORAL TABS 1/2 tablet 2 to 3x daily TIZANIDINE HCL 24275240599 Active Desiree Rosado MD Active PANTOPRAZOLE SODIUM 40 MG ORAL TBEC 1 tablet daily PANTOPRAZOLE SODIUM 13055040563 Active Desiree Rosado MD Active RANITIDINE HCL 150 MG ORAL TABS 1 tablet twice daily RANITIDINE HCL 31224886665 Active Desiree Rosado MD Active CELECOXIB 200 MG ORAL CAPS 1 tablet twice daily CELECOXIB 76161816771 Active Desiree Rosado MD Active LEVO-T 25 MCG ORAL TABS 1 tablet daily LEVOTHYROXINE SODIUM 40015210232 Active Desiree Rosado MD Active B-12 1000 MCG ORAL CAPS 1 capsule daily CYANOCOBALAMIN 11499592091 Active Desiree Rosado MD Active FENOFIBRATE 150 MG ORAL CAPS 1 tablet daily FENOFIBRATE 53927803450 Active Desiree Rosado MD Active GLYBURIDE MICRONIZED 3 MG TABS Take one by mouth daily GLYBURIDE MICRONIZED 91946001442 No Longer Active Desiree Rosado MD Active ALPRAZOLAM TABS Take one by mouth at bedtime as needed ALPRAZOLAM TABS 19067537630 No Longer Active Desiree Rosado MD Active ALBUTEROL SULFATE 0.083 % NEBU SOLN one vial per nebulizer needed ALBUTEROL SULFATE 44400629751 Active Alejandro Haynes MD Active ALPRAZOLAM TABS Take one by mouth at bedtime as needed ALPRAZOLAM TABS ALPRAZOLAM TABS Inactive GLYBURIDE MICRONIZED 3 MG TABS Take one by mouth daily GLYBURIDE MICRONIZED 3 MG TABS 392317 GLYBURIDE MICRONIZED Inactive INVOKANA 300 MG ORAL TABS take 1 tablet by mouth daily before the first meal of the day INVOKANA 300 MG ORAL TABS CANAGLIFLOZIN Inactive GABAPENTIN 300 MG CAPS 2 po q hs for nerve pain GABAPENTIN 300 MG CAPS 826359 GABAPENTIN Inactive Vital Signs Date Name Value [...] platelet count 308 10*3/mm3 Lab Report: Chlamydia/GC APTIMA/19344 - Lab chlamydia DNA probe NOT DETECTED NOT DETECTED Lab Report: Chlamydia/GC APTIMA/33437 - Microbiology Neisseria gonorrhoeae DNA probe NOT DETECTED NOT DETECTED Encounters Code Encounter Date Provider Facility CPT-34225 Level 3 Est. 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
--- OUTSIDE RECORDS SUMMARY | 2018-03-30 10:50 | XMS REPORT | Clinical Summary ---
Author Author Admin, E Organization [facility] [place] Address Unknown Phone Unavailable Allergies, Adverse Reactions, [...] TABS 1 tablet twice daily MILNACIPRAN HCL 12868005741 Active Desiree Rosado MD Active AMITRIPTYLINE HCL 25 MG ORAL TABS 1.5 tablets once daily AMITRIPTYLINE HCL 92724435961 Active Desiree Rosado MD Active TIZANIDINE HCL 4 MG ORAL TABS 1/2 tablet 2 to 3x daily TIZANIDINE HCL 58042922333 Active Desiree Rosado MD Active PANTOPRAZOLE SODIUM 40 MG ORAL TBEC 1 tablet daily PANTOPRAZOLE SODIUM 73989217059 Active Desiree Rosado MD Active RANITIDINE HCL 150 MG ORAL TABS 1 tablet twice daily RANITIDINE HCL 77573253267 Active Desiree Rosado MD Active CELECOXIB 200 MG ORAL CAPS 1 tablet twice daily CELECOXIB 39973806106 Active Desiree Rosado MD Active LEVO-T 25 MCG ORAL TABS 1 tablet daily LEVOTHYROXINE SODIUM 26960509957 Active Desiree Rosado MD Active B-12 1000 MCG ORAL CAPS 1 capsule daily CYANOCOBALAMIN 76506678711 Active Desiree Rosado MD Active INVOKANA 300 MG ORAL TABS take 1 tablet by mouth daily before the first meal of the day CANAGLIFLOZIN 67579075526 Active Desiree Rosado MD Active FENOFIBRATE 150 MG ORAL CAPS 1 tablet daily FENOFIBRATE 95994199322 Active Desiree Rosado MD Active GLYBURIDE MICRONIZED 3 MG TABS Take one by mouth daily GLYBURIDE MICRONIZED 40868066056 No Longer Active Desiree Rosado MD Active ALPRAZOLAM TABS Take one by mouth at bedtime as needed ALPRAZOLAM TABS 05213352597 No Longer Active Desiree Rosado MD Active ALBUTEROL SULFATE 0.083 % NEBHali SOLEkta one vial per nebulizer needed ALBUTEROL SULFATE 85885308257 Active Alejandro Haynes MD Active GABAPENTIN 300 MG CAPS 2 po q hs for nerve pain GABAPENTIN 29273319485 Active Alejandro Haynes MD Active ALPRAZOLAM TABS Take one by mouth at bedtime as needed ALPRAZOLAM TABS ALPRAZOLAM TABS Inactive GLYBURIDE MICRONIZED 3 MG TABS Take one by mouth daily GLYBURIDE MICRONIZED 3 MG TABS 650070 GLYBURIDE MICRONIZED Inactive Diagnostic Results Date Name Value Unit Range Description Lab Report: Chlamydia/GC APTIMA/85861 - Lab chlamydia DNA probe NOT DETECTED NOT DETECTED Lab Report: Chlamydia/GC APTIMA/71851 - Microbiology Neisseria gonorrhoeae DNA probe NOT DETECTED NOT DETECTED Encounters Code Encounter Date Provider Facility CPT-50618 Level 3 Est. 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
--- OUTSIDE RECORDS SUMMARY | 2018-03-30 10:50 | XMS REPORT | Clinical Summary ---
Author Author Admin, E Organization [facility] Address Unknown Phone Unavailable Allergies, Adverse Reactions, [...] TEETH ORL CAV&DIGESTV SYS NEC V58.75 Active Aeljandro Haynes MD Aftercare following surgery of the [...] TABS 1 tablet twice daily MILNACIPRAN HCL 10682047360 Active Desiree Rosado MD Active AMITRIPTYLINE HCL 25 MG ORAL TABS 1.5 tablets once daily AMITRIPTYLINE HCL 73789140975 Active Desiree Rosado MD Active TIZANIDINE HCL 4 MG ORAL TABS 1/2 tablet 2 to 3x daily TIZANIDINE HCL 07025759967 Active Desiree Rosado MD Active PANTOPRAZOLE SODIUM 40 MG ORAL TBEC 1 tablet daily PANTOPRAZOLE SODIUM 28784399183 Active Desiree Rosado MD Active RANITIDINE HCL 150 MG ORAL TABS 1 tablet twice daily RANITIDINE HCL 75324817044 Active Desiree Rosado MD Active CELECOXIB 200 MG ORAL CAPS 1 tablet twice daily CELECOXIB 87698614172 Active Desiree Rosado MD Active LEVO-T 25 MCG ORAL TABS 1 tablet daily LEVOTHYROXINE SODIUM 12422602199 Active Desiree Rosado MD Active B-12 1000 MCG ORAL CAPS 1 capsule daily CYANOCOBALAMIN 92842261288 Active Desiree Rosado MD Active INVOKANA 300 MG ORAL TABS take 1 tablet by mouth daily before the first meal of the day CANAGLIFLOZIN 50557487826 Active Desiree Rosado MD Active FENOFIBRATE 150 MG ORAL CAPS 1 tablet daily FENOFIBRATE 62961852523 Active Desiree Rosado MD Active GLYBURIDE MICRONIZED 3 MG TABS Take one by mouth daily GLYBURIDE MICRONIZED 18188202100 No Longer Active Desiree Rosado MD Active ALPRAZOLAM TABS Take one by mouth at bedtime as needed ALPRAZOLAM TABS 57441531201 No Longer Active Desiree Rosado MD Active ALBUTEROL SULFATE 0.083 % NEBU SOLN one vial per nebulizer needed ALBUTEROL SULFATE 28551087053 Active Alejandro Haynes MD Active GABAPENTIN 300 MG CAPS 2 po q hs for nerve pain GABAPENTIN 98916834108 Active Alejandro Haynes MD Active ALPRAZOLAM TABS Take one by mouth at bedtime as needed ALPRAZOLAM TABS ALPRAZOLAM TABS Inactive GLYBURIDE MICRONIZED 3 MG TABS Take one by mouth daily GLYBURIDE MICRONIZED 3 MG TABS 165032 GLYBURIDE MICRONIZED Inactive Vital Signs Date Name [...] platelet count 308 10*3/mm3 Lab Report: Chlamydia/GC APTIMA/80256 - Lab chlamydia DNA probe NOT DETECTED NOT DETECTED Lab Report: Chlamydia/GC APTIMA/51169 - Microbiology Neisseria gonorrhoeae DNA probe NOT DETECTED NOT DETECTED Encounters Code Encounter Date Provider Facility CPT-00932 Level 3 Est. 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 [place] Procedures Code Procedure Name Date Entry Date Standard Description CPT-54327 Endometrial bx wo cervical dil 15:31:33 CDT CPT-OV Office Visit 14:46:14 CDT CPT-41119 Postop F/U Visit 06:18:39 EFFICIENCY ANALYST
--- OUTSIDE RECORDS SUMMARY | 2018-03-30 10:51 | XMS REPORT | Clinical Summary ---
Author Author Admin, E Organization [facility] [employer] Address Unknown Phone Unavailable Allergies, Adverse Reactions, [...] TABS 1 tablet twice daily MILNACIPRAN HCL 74131829859 Active Desiree Rosado MD Active AMITRIPTYLINE HCL 25 MG ORAL TABS 1.5 tablets once daily AMITRIPTYLINE HCL 39681244577 Active Desiree Rosado MD Active TIZANIDINE HCL 4 MG ORAL TABS 1/2 tablet 2 to 3x daily TIZANIDINE HCL 07330543700 Active Desiree Rosado MD Active PANTOPRAZOLE SODIUM 40 MG ORAL TBEC 1 tablet daily PANTOPRAZOLE SODIUM 84254457643 Active Desiree Rosado MD Active RANITIDINE HCL 150 MG ORAL TABS 1 tablet twice daily RANITIDINE HCL 73513500605 Active Desiree Rosado MD Active CELECOXIB 200 MG ORAL CAPS 1 tablet twice daily CELECOXIB 89157636343 Active Desiree Rosado MD Active LEVO-T 25 MCG ORAL TABS 1 tablet daily LEVOTHYROXINE SODIUM 68108795695 Active Desiree Rosado MD Active B-12 1000 MCG ORAL CAPS 1 capsule daily CYANOCOBALAMIN 50096576368 Active Desiree Rosado MD Active INVOKANA 300 MG ORAL TABS take 1 tablet by mouth daily before the first meal of the day CANAGLIFLOZIN 92057063463 Active Desiree Rosado MD Active FENOFIBRATE 150 MG ORAL CAPS 1 tablet daily FENOFIBRATE 84793168211 Active Desiree Rosado MD Active GLYBURIDE MICRONIZED 3 MG TABS Take one by mouth daily GLYBURIDE MICRONIZED 91100019162 No Longer Active Desiree Rosado MD Active ALPRAZOLAM TABS Take one by mouth at bedtime as needed ALPRAZOLAM TABS 12338116605 No Longer Active Desiree Rosado MD Active ALBUTEROL SULFATE 0.083 % NEBU SOLN one vial per nebulizer needed ALBUTEROL SULFATE 56678062119 Active Alejandro Haynes MD Active GABAPENTIN 300 MG CAPS 2 po q hs for nerve pain GABAPENTIN 62580932963 Active Alejandro Haynes MD Active ALPRAZOLAM TABS Take one by mouth at bedtime as needed ALPRAZOLAM TABS ALPRAZOLAM TABS Inactive GLYBURIDE MICRONIZED 3 MG TABS Take one by mouth daily GLYBURIDE MICRONIZED 3 MG TABS 431427 GLYBURIDE MICRONIZED Inactive Diagnostic Results Date Name [...] platelet count 308 10*3/mm3 Lab Report: Chlamydia/GC APTIMA/85115 - Lab chlamydia DNA probe NOT DETECTED NOT DETECTED Lab Report: Chlamydia/GC APTIMA/78237 - Microbiology Neisseria gonorrhoeae DNA probe NOT DETECTED NOT DETECTED Encounters Code Encounter Date Provider Facility CPT-52477 Level 3 Est. Patient 15:22:48 COOK PIE Alejandro Haynes MD [facility] [place] Procedures Code Procedure Name Date Entry Date Standard Description CPT-14504 Endometrial bx wo cervical dil 15:31:33 CDT CPT-OV Office Visit 14:46:14 CDT CPT-20841 Postop F/U Visit 06:18:39 COOK PIE
--- OUTSIDE RECORDS SUMMARY | 2018-03-30 10:51 | XMS REPORT | Clinical Summary ---
Author Author Admin, E Organization [facility] [employer] Address Unknown Phone Unavailable Allergies, Adverse Reactions, [...] of diabetes mellitus Chronic tonsillitis 474.00 Active Alejanrdo Haynes MD Chronic tonsillitis AFTERCARE FLW SURG [...] SC SOLN 15units at night INSULIN GLARGINE 96951556123 Active Desiree Rosado MD Active NOVOLOG 100 UNIT/ML SC SOLN sliding scale at meals INSULIN ASPART 07288370436 Active Desiree Rosado MD Active GABAPENTIN 300 MG CAPS 2 po q hs for nerve pain GABAPENTIN 59816939604 No Longer Active Desiree Rosado MD Active INVOKANA 300 MG ORAL TABS take 1 tablet by mouth daily before the first meal of the day CANAGLIFLOZIN 90390812957 No Longer Active Desiree Rosado MD Active SAVELLA 100 MG ORAL TABS 1 tablet twice daily MILNACIPRAN HCL 40330801618 Active Desiree Rosado MD Active AMITRIPTYLINE HCL 25 MG ORAL TABS 1.5 tablets once daily AMITRIPTYLINE HCL 42915918940 Active Desiree Rosado MD Active TIZANIDINE HCL 4 MG ORAL TABS 1/2 tablet 2 to 3x daily TIZANIDINE HCL 52465343872 Active Desiree Rosado MD Active PANTOPRAZOLE SODIUM 40 MG ORAL TBEC 1 tablet daily PANTOPRAZOLE SODIUM 01441153047 Active Desiree Rosado MD Active RANITIDINE HCL 150 MG ORAL TABS 1 tablet twice daily RANITIDINE HCL 27815677856 Active Desiree Rosado MD Active CELECOXIB 200 MG ORAL CAPS 1 tablet twice daily CELECOXIB 81075480244 Active Desiree Rosado MD Active LEVO-T 25 MCG ORAL TABS 1 tablet daily LEVOTHYROXINE SODIUM 76771260219 Active Desiree Rosado MD Active B-12 1000 MCG ORAL CAPS 1 capsule daily CYANOCOBALAMIN 02636597552 Active Desiree Rosado MD Active FENOFIBRATE 150 MG ORAL CAPS 1 tablet daily FENOFIBRATE 86383923301 Active Desiree Rosado MD Active GLYBURIDE MICRONIZED 3 MG TABS Take one by mouth daily GLYBURIDE MICRONIZED 77830597293 No Longer Active Desiree Rosado MD Active ALPRAZOLAM TABS Take one by mouth at bedtime as needed ALPRAZOLAM TABS 28298968263 No Longer Active Desiree Rosado MD Active ALBUTEROL SULFATE 0.083 % [facility] SOLN one vial per nebulizer needed ALBUTEROL SULFATE 57382704255 Active Alejandro Haynes MD Active ALPRAZOLAM TABS Take one by mouth at bedtime as needed ALPRAZOLAM TABS ALPRAZOLAM TABS Inactive GLYBURIDE MICRONIZED 3 MG TABS Take one by mouth daily GLYBURIDE MICRONIZED 3 MG TABS 175107 GLYBURIDE MICRONIZED Inactive INVOKANA 300 MG ORAL TABS take 1 tablet by mouth daily before the first meal of the day INVOKANA 300 MG ORAL TABS CANAGLIFLOZIN Inactive GABAPENTIN 300 MG CAPS 2 po q hs for nerve pain GABAPENTIN 300 MG CAPS 540311 GABAPENTIN Inactive Vital Signs Date Name Value [...] platelet count 308 10*3/mm3 Lab Report: Chlamydia/GC APTIMA/66767 - Lab chlamydia DNA probe NOT DETECTED NOT DETECTED Lab Report: Chlamydia/GC APTIMA/96030 - Microbiology Neisseria gonorrhoeae DNA probe NOT DETECTED NOT DETECTED Encounters Code Encounter Date Provider Facility CPT-86011 Level 3 Est. 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
--- OUTSIDE RECORDS SUMMARY | 2018-03-30 10:52 | XMS REPORT | Clinical Summary ---
Author Author Admin, E Organization [facility] [employer] Address Unknown Phone Unavailable Allergies, Adverse Reactions, [...] TABS 1 tablet twice daily MILNACIPRAN HCL 70190779374 Active Desiree oRsado MD Active AMITRIPTYLINE HCL 25 MG ORAL TABS 1.5 tablets once daily AMITRIPTYLINE HCL 44932599261 Active Desiree Rosado MD Active TIZANIDINE HCL 4 MG ORAL TABS 1/2 tablet 2 to 3x daily TIZANIDINE HCL 78655211057 Active Desiree Rosado MD Active PANTOPRAZOLE SODIUM 40 MG ORAL TBEC 1 tablet daily PANTOPRAZOLE SODIUM 26528159242 Active Desiree Rosado MD Active RANITIDINE HCL 150 MG ORAL TABS 1 tablet twice daily RANITIDINE HCL 55798008044 Active Desiree Rosado MD Active CELECOXIB 200 MG ORAL CAPS 1 tablet twice daily CELECOXIB 07264928056 Active Desiree Rosado MD Active LEVO-T 25 MCG ORAL TABS 1 tablet daily LEVOTHYROXINE SODIUM 51075957130 Active Desiree Rosado MD Active B-12 1000 MCG ORAL CAPS 1 capsule daily CYANOCOBALAMIN 71314722698 Active Desiree Rosado MD Active INVOKANA 300 MG ORAL TABS take 1 tablet by mouth daily before the first meal of the day CANAGLIFLOZIN 89197718318 Active Desiree Rosado MD Active FENOFIBRATE 150 MG ORAL CAPS 1 tablet daily FENOFIBRATE 29737073906 Active Desiree Rosado MD Active GLYBURIDE MICRONIZED 3 MG TABS Take one by mouth daily GLYBURIDE MICRONIZED 01779118876 No Longer Active Desiree Rosado MD Active ALPRAZOLAM TABS Take one by mouth at bedtime as needed ALPRAZOLAM TABS 77209800699 No Longer Active Desiree Rosado MD Active ALBUTEROL SULFATE 0.083 % NEBU SOLN one vial per nebulizer needed ALBUTEROL SULFATE 94138448335 Active Alejandro Haynes MD Active GABAPENTIN 300 MG CAPS 2 po q hs for nerve pain GABAPENTIN 66885830505 Active Alejandro Haynes MD Active ALPRAZOLAM TABS Take one by mouth at bedtime as needed ALPRAZOLAM TABS ALPRAZOLAM TABS Inactive GLYBURIDE MICRONIZED 3 MG TABS Take one by mouth daily GLYBURIDE MICRONIZED 3 MG TABS 701445 GLYBURIDE MICRONIZED Inactive Encounters Code Encounter Date Provider Facility CPT-17584 Level 3 Est. Patient 15:22:48 LICENSED PHARMACIST Alejandro Haynes MD [facility] [place] Procedures Code Procedure Name Date Entry Date Standard Description CPT-83393 Endometrial bx wo cervical dil 15:31:33 CDT CPT-OV Office Visit 14:46:14 CDT CPT-20218 Postop F/U Visit 06:18:39 LICENSED PHARMACIST
--- OUTSIDE RECORDS SUMMARY | 2018-03-30 10:52 | XMS REPORT | Continuity of Care Document ---
Demographics x Preferred Language Unknown Marital Status Unknown [employer]ology Affiliation Unknown Race Unknown Ethnic Group Unknown Author Author [facility] Organization [facility] Address Unknown Phone Unavailable Allergies Active Description Code Type Severity Reaction Onset Reported/Identified Relationship to Patient Clinical Status Yes Anectine 25531 Drug Allergy Unknown Family hx of severe rx to Anecti Yes No Known Drug Allergies 79958652 Drug Allergy N/A N/A Confirmed but inactive Yes succinylcholine 5590 Drug Allergy N/A N/A Confirmed or Verified Medications There is no data. Problems Date Dx Coded Attending Type Code Diagnosis Diagnosed By 01/15/2014 CALI REDDY MD 724.2 LUMBAGO/ LOW BACK PAIN Procedures Code [place] [address] URINE DRUG SCREEN (IN-HOUSE ) 01/19/2014 06611 ROUTINE VENIPUNCTURE 12/10/2015 96545 COMPREHEN METABOLIC PANEL 12/10/2015 67657 URINALYSIS, AUTO W/SCOPE 12/10/2015 04718 COMPLETE CBC, AUTOMATED 12/10/2015 79214 RBC ANTIBODY SCREEN 12/10/2015 80873 BLOOD TYPING, ABO 12/10/2015 93302 BLOOD TYPING, RH (D) 12/10/2015 48833 SPECIAL SUPPLIES 12/11/2015 C9290 INJ, BUPIVICAINE LIPOSOME 12/11/2015 J2704 INJ, PROPOFOL, 10 MG 12/11/2015 Results Test Result Range UA - 12/09/15 00:00 PH 6.5 4.5-8.0 SG 1.025 1.003-1.035 UABILI NEGATIVE UABLD NEGATIVE UACOLOR YEL UAGLU 3+ UAKET NEGATIVE UALEUK NEGATIVE UANIT NEGATIVE UAURO 0.2 0-0.2 UCX NO CLARITY SLTCLDY PROTEIN 2+ UA WBC NOWBC UA RBC R05 SQUAMOUS EPITHELIAL CELLS 3+ BACTERIA OCC YEAST 3+ CBC - 12/09/15 00:00 HCT 47.9 % 36.9-47.0 HGB 15.9 G/DL 12.0-16.0 MCH 29.9 PG 27-31 MCHC 33.2 G/DL 33-37 MCV 90.2 FL 81-99 MPV 9.6 FL 7.3-10.4 PLT 308 10^3u 130-400 RBC 5.3 10^6u 4.2-5.4 RDW 13.3 % 11.5-15.5 WBC 10.7 10^3u 4.8-10.8 CMP - 12/09/15 00:00 ALB 4.3 G/DL 3.5-5 ALP 129 IU/L 25-72 ALT 53 IU/L 12-65 AST 34 IU/L 10-42 BCR 15.6 10-20 BUN 10 MG/DL 7-18 CA 8.9 MG/DL 8.4-10.2 CL 95 MEQ/L 98-107 CO2 27.4 MEQ/L 22-28 CREA 0.64 MG/DL 0.6-1.0 EGFR 104 eGFR >=60 GLU 275 MG/DL 70-105 K 3.8 MEQ/L 3.5-5.1 NA 133 MEQ/L 134-145 OSMSC 275.2 MOSML 280-300 TBIL 0.3 MG/DL 0.1-1.0 TP 7.7 G/DL 6.0-8.3 Albumin/Globulin Ratio 1.3 0-8 Anion Gap 10.6 8-16 TYPE AND SCREEN - 12/09/15 00:00 ABO O ABSCRN N Negative RH P UCG GROUP - 12/10/15 00:00 UCG N Negative HA1C - 12/10/15 00:00 HA1C 11.1 % 4.5-6.2 TSH - 12/10/15 00:00 TSH 1.88 UIUML 0.36-3.74 MICROALBUMIN - 12/10/15 00:00 MALB 758.9 MG/L [facility] - 12/11/15 00:00 ALB 3.2 G/DL 3.5-5 ALP 108 IU/L 25-72 ALT 47 IU/L 12-65 AST 22 IU/L 10-42 BCR 20.3 10-20 BUN 13 MG/DL 7-18 CA 8.6 MG/DL 8.4-10.2 CL 100 MEQ/L 98-107 CO2 28.2 MEQ/L 22-28 CREA 0.64 MG/DL 0.6-1.0 EGFR 104 eGFR >=60 GLU 289 MG/DL 70-105 K 4.3 MEQ/L 3.5-5.1 NA 137 MEQ/L 134-145 OSMSC 284.5 MOSML 280-300 TBIL 0.2 MG/DL 0.1-1.0 TP 6.2 G/DL 6.0-8.3 Albumin/Globulin Ratio 1.1 0-8 Anion Gap 8.8 8-16 CBC - 12/11/15 00:00 HCT 40.2 % 36.9-47.0 HGB 12.9 G/DL 12.0-16.0 MCH 29.5 PG 27-31 MCHC 32.1 G/DL 33-37 MCV 91.8 FL 81-99 MPV 9.7 FL 7.3-10.4 PLT 273 10^3u 130-400 RBC 4.4 10^6u 4.2-5.4 RDW 12.8 % 11.5-15.5 WBC 12.1 10^3u 4.8-10.8 Encounters ACCT No. Visit Date/Time Discharge Status Pt. Type Provider Facility Loc./Unit Complaint [id number] 12/10/2015 06:29:00 12/11/2015 12:45:00 DIS Outpatient LEBRON HILLIARD [facility] OBS [id number] 07/13/2015 00:00:00 Document Registration [id number] 01/23/2018 10:15:03 ACT Unknown [id number] 01/15/2014 14:50:00 01/15/2014 23:59:59 CLS Outpatient SINGER NAVARRO, CALI Olmos
== END 2018-03-29 13:20 | disposition home or self-care (01) ==
LOC: SDC 06:55
PROVIDERS: ATTEND Otolaryngology Otolaryngology/Facial Plastic Surgery
DX: J32.0 Chronic maxillary sinusitis (principal); J32.2 Chronic ethmoidal sinusitis; J32.3 Chronic sphenoidal sinusitis; J34.2 Deviated nasal septum; J33.0 Polyp of nasal cavity; J34.3 Hypertrophy of nasal turbinates; E11.9 Type 2 diabetes mellitus without complications; K21.9 Gastro-esophageal reflux disease without esophagitis; E78.5 Hyperlipidemia, unspecified; Z87.891 Personal history of nicotine dependence; J45.909 Unspecified asthma, uncomplicated; G43.909 Migraine, unspecified, not intractable, without status migrainosus; Z79.4 Long term (current) use of insulin; Z79.899 Other long term (current) drug therapy
CPT/HCPCS: 82962